=== PATIENT | female | born 1990 | race American Indian/Alaskan Native ===

== ENCOUNTER 2020-06-06 07:04 | Inpatient (IN) | payer MEDICAID ==
[2020-06-06] MEDS ORDERED: OXYTOCIN 10 UNIT/1 ML INJ IM ONE (07:30)
[2020-06-06] MEDS ORDERED: OXYTOCIN 10 UNIT/1 ML INJ ONE (07:32)
[2020-06-06] MEDS ORDERED: TERBUTALINE 1 MG/1 ML INJ SUB-Q PRN (07:54)
[2020-06-06] MEDS ORDERED: ePHEDrine SULFATE 50 MG/1 ML INJ IV PRN (07:54)
[2020-06-06] MEDS ORDERED: TERBUTALINE 1 MG/1 ML INJ IVP PRN (07:54)
[2020-06-06] MEDS ORDERED: ACETAMINOPHEN 325 MG TAB PO PRN (07:56)
[2020-06-06] MEDS ORDERED: LANOLIN/ZINC/DIMETHICONE (LANSINOH) 7 GM TP PRN ×2 (07:56→08:30)
--- NOTE | 2020-06-06 07:56 | History and Physical Report ---
History of Present Illness Date of examination: 06/06/20 Date of admission: 06/06/20 07:46 History of present illness: Precipice labor, patient of [facility], no records Past History Past Medical History: asthma Past Surgical History: no surgical history - Obstetrical History : 1 Medications and Allergies Allergies Allergy/AdvReac Type Severity Reaction Status Date / Time latex Allergy Swelling Verified 02/25/15 00:23 Home Medications Medication Instructions Recorded Confirmed Last Taken Type Budesonide/Formoterol Fumarate 10.2 gm PO PRN 03/23/15 03/23/15 2 Weeks Ago History [Symbicort 80-4.5 Mcg Inhaler] ~03/09/15 Ferrous Sulfate 325 mg PO PRN 03/23/15 03/23/15 2 Days Ago History ~03/21/15 - Vital Signs Vital signs: Vital Signs Pulse BP 103 H 128/61 06/06/20 07:49 06/06/20 07:49 Temp Pulse Resp BP Pulse Ox 103 H 128/61 06/06/20 07:49 06/06/20 07:49 - Physical Exam Breasts: Positive: deferred Lungs: Positive: Normal air movement Abdomen: Positive: soft Genitourinary (Female): Positive: normal external genitalia, normal perenium Vulva: both: normal Uterus: Positive: enlarged Anus/Rectum: Positive: normal perianal skin Extremities: Positive: normal. Negative: tenderness, edema Results All other labs normal. Assessment and Plan - Patient Problems (1) 40 weeks gestation of Current Visit: Yes Status: Acute (2) Delivery normal Current Visit: Yes Status: Acute
--- NOTE | 2020-06-06 07:58 | Procedure Note ---
OB Delivery Note - Delivery Date of Delivery: 06/06/20 Surgeon: LAURIE LEWIS Estimated blood loss: 200cc - Vaginal Delivery presentation: vertex Delivery position: OA Intrapartum events: none Delivery induction: none Delivery monitor: external FHT Route of delivery: Delivery placenta: spontaneous (intact) Delivery cord: nuchal cord (loose x1) Episiotomy: none Delivery laceration: none Anesthesia: none - A at 1 minute: 7 at 5 minutes: 8 Infant Gender: Male (6lb 13oz)
[2020-06-06] MEDS ORDERED: OXYTOCIN DRIP 30 UNITS/500 ML BAG IV SCH (08:00)
[2020-06-06] MEDS ORDERED: OXYTOCIN 20 UNIT/1000ML DRIP 20 UNITS/1,000 ML BAG IV SCH ×2 (08:00)
[2020-06-06] MEDS ORDERED: LACTATED RINGERS 1,000 ML IV SCH (08:00)
[2020-06-06] MEDS ORDERED: IBUPROFEN 600 MG TAB PO SCH (08:00)
[2020-06-06] MEDS ORDERED: BENZOCAINE/MENTHOL 20/0.5% TOP SPRAY 56 GM TP PRN (08:30)
[2020-06-06] MEDS ORDERED: diphenhydrAMINE 25 MG CAP PO PRN (08:30)
[2020-06-06] MEDS ORDERED: WITCH HAZEL/ GLYCERIN PAD TP PRN (08:30)
[2020-06-06] MEDS ORDERED: ACETAMINOPHEN 500 MG TAB PO PRN (08:30)
[2020-06-06 08:53] LABS: Mean Corpuscular HGB Conc 29 % (30-34); Red Blood Count 5.63 M/mm3 (3.65-5.03)
[2020-06-06] MEDS ORDERED: LIDOCAINE (2%) 20 MG/1 ML VIAL 20 ML MDV INFILTRATI ONE (09:00)
[2020-06-06] MEDS ORDERED: PROMETHAZINE 25 MG RECT SUPP PR PRN (09:00)
[2020-06-06] MEDS ORDERED: ONDANSETRON 4 MG/2 ML INJ IV PRN (09:00)
[2020-06-06] MEDS ORDERED: PROMETHAZINE 25 MG TAB PO PRN (09:00)
[2020-06-06 09:32] LABS: Hemoglobin 8.7 gm/dl (10.1-14.3)
[2020-06-06 09:33] LABS: Hematocrit 30.6 % (30.3-42.9); Mean Corpuscular Volume 54 fl (79-97); Platelet Count 213 K/mm3 (140-440); Red Cell Distribution Width 24.1 % (13.2-15.2)
[2020-06-06] MEDS: DOCUSATE SODIUM 100 MG CAP PO SCH ×2 (11:23→22:02)
[2020-06-06] MEDS: PRENATAL VIT27-FE FUMARATE-FOLIC ACID VIT TAB PO SCH (11:24)
[2020-06-06] MEDS: IBUPROFEN 800 MG TAB PO SCH (11:24)
[2020-06-06] MEDS ORDERED: MAGNESIUM HYDROXIDE (MOM) ORAL LIQD UDC PO PRN (22:00)
[2020-06-06] MEDS ORDERED: MINERAL OIL 30 ML ORAL LIQD PO PRN (22:00)
[2020-06-06] MEDS: FERROUS SULFATE 325 MG TAB PO SCH (23:13)
[2020-06-07] MEDS: IBUPROFEN 800 MG TAB PO SCH ×2 (00:03→10:21)
[2020-06-07 01:59] LABS: Hematocrit 27.1 % (30.3-42.9); Hemoglobin 7.8 gm/dl (10.1-14.3)
--- NOTE | 2020-06-07 07:05 | Discharge Summary ---
Providers - Providers Date of Admission: 06/06/20 07:46 Date of discharge: 06/07/20 (pt desires d/c) Attending physician: NICOLE OBANDO Primary care physician: NICOLE OBANDO Hospitalization Reason for admission: active labor Delivery: Episiotomy: none Laceration: none Incision: normal Other procedures: none complications: none Discharge diagnosis: IUP at term delivered baby: male (will call to [facility]) Hospital course: uncomplicated vaginal delivery Pt A&O No c/o pain. VSS FF below umb Lochia small Perineum intact H&H 05/22 Pt orta s chronic anemia RX given for po iron No s/sx of anemia Doing well s/p vag delivery P: d/c today with instructions Pt and SO voice that they will bring their son to [facility] for circumcision. May f/u with us PP if desired. Condition at discharge: Good Disposition: DC-01 TO HOME OR SELFCARE - Discharge Diagnoses (1) Delivery normal Status: Acute Comment: RTO 4 weeks PP care Plan - Discharge Medications Prescriptions: Docusate Sodium [Colace] 100 mg PO BID PRN #60 capsule PRN Reason: Constipation Lidocain2.5%/Prilocai2.5% [Emla] 5 gm TP ONCE #1 tube Ferrous Sulfate [Feosol 325 MG tab] 325 mg PO BID #60 tablet - Provider Discharge Summary Activity: routine, no sex for 6 weeks, no heavy lifting 4 weeks, no strenuous exercise Diet: routine Instructions: routine Additional instructions: [] Smoking cessation referral if applicable(refer to patient education folder for contact #) [] Refer to [facility] Book[facility] Call your doctor immediately for: * Fever > 100.5 * Heavy vaginal bleeding ( >1 pad per hour) * Severe persistent headache * Shortness of breath * Reddened, hot, painful area to leg or breast * Drainage or odor from incision. * Keep incision clean and dry at all times and follow doctor's instructions regarding bathing/showering - Follow up plan Follow up: NICOLE OBANDO MD [Primary Care Provider] - 7 Days VENANCIO WEST CNM [Advanced Practice Nurse] - 7 Days (Congratulations! Please call [phone] to schedule your visit in 4 weeks and your son's circumcision in 1 week. Bring the EMLA cream with you to his visit. Do NOT use at home. Take medications as prescribed. Call with any concerns.)
[2020-06-07] MEDS: FERROUS SULFATE 325 MG TAB PO SCH (10:21)
[2020-06-07] MEDS: DOCUSATE SODIUM 100 MG CAP PO SCH (10:21)
[2020-06-07] MEDS: PRENATAL VIT27-FE FUMARATE-FOLIC ACID VIT TAB PO SCH (10:21)
[2020-06-07] MEDS ORDERED: DIPHtheria,PERTUSSIS(ACELL),TETANUS VACCINE/PF 0.5 ML VIAL IM ONE (12:00)
[2020-06-07 17:02] VITALS: BP 117/84
== END 2020-06-07 15:40 | disposition home or self-care (01) | DRG 775 ==
LOC: TRG 07:04 → APU 07:05 → LD 07:35 → TRG 07:45 → LD 07:46 → OB 10:15
PROVIDERS: ADMIT Obstetrics & Gynecology; ATTEND Obstetrics & Gynecology
PROC: 10E0XZZ Delivery of Products of Conception, External Approach (ICD-10-PCS; principal; 2020-06-06)
DX: O99.02 Anemia complicating childbirth (principal); O99.52 Diseases of the respiratory system complicating childbirth; Z37.0 Single live birth; J45.909 Unspecified asthma, uncomplicated; Z3A.40 40 weeks gestation of pregnancy
CPT/HCPCS: 36415; 85014; 85018; 85027; 86592; 86850; 86900; 86901; G0378; J2590